=== PATIENT | female | born 1965 | race Caucasian/White ===

== ENCOUNTER 2022-11-11 08:56 | Day surgery (SDC) | payer OTHER ==
[2022-11-09 12:39] VITALS: BMI 38.2
[2022-11-11] MEDS ORDERED: Acetaminophen 500 MG TAB ONE (10:03)
[2022-11-11] MEDS ORDERED: Bupivacaine/Epinephrine 0.25% 30 ML VIAL ONE (10:36)
[2022-11-11] MEDS ORDERED: fentaNYL 50 mcg/mL 1 mL Vial ONE ×2 (11:02→12:55)
[2022-11-11] MEDS ORDERED: fentaNYL PF 100 MCG/2 ML SYRINGE ONE (11:02)
[2022-11-11] MEDS ORDERED: Midazolam HCl 2 mg/2 ml Vial ONE ×2 (11:02→11:07)
[2022-11-11] MEDS ORDERED: CEFAZOLIN 2 GM VIAL ONE (11:10)
[2022-11-11] MEDS ORDERED: Sodium Chloride 0.9% 100 ML ONE (11:10)
[2022-11-11] MEDS ORDERED: Ketorolac Tromethamine 30 MG/ML VIAL ONE (11:12)
[2022-11-11] MEDS ORDERED: Lidocaine 1% PF 5 ML VIAL ONE (11:29)
[2022-11-11] MEDS ORDERED: Rocuronium Bromide 10 MG/ML (10ML VIAL) ONE (11:29)
[2022-11-11] MEDS ORDERED: Ondansetron PF 4 MG/2 ML Vial ONE (11:29)
[2022-11-11] MEDS ORDERED: Glycopyrrolate 0.2 MG/ML 5 ML SYRINGE ONE (11:29)
[2022-11-11] MEDS ORDERED: PROPOFOL 200 MG/20 ML VIAL ONE (11:29)
[2022-11-11] MEDS ORDERED: Dexamethasone 20 MG/5 ML VIAL ONE (11:29)
[2022-11-11] MEDS ORDERED: NEOSTIGMINE 3 MG/3 ML SYR 3 MG/3 ML SYRINGE ONE (11:29)
[2022-11-11] MEDS ORDERED: Promethazine HCl 25 MG/ML VIAL ONE (14:33)
== END 2022-11-11 14:48 | disposition home or self-care (01) ==
LOC: SDC 08:56
PROVIDERS: ATTEND Specialist
PROC: 0FT44ZZ Resection of Gallbladder, Percutaneous Endoscopic Approach (ICD-10-PCS; principal; 2022-11-11)
DX: K80.10 Calculus of gallbladder with chronic cholecystitis without obstruction (principal); I10 Essential (primary) hypertension; E89.0 Postprocedural hypothyroidism; E11.9 Type 2 diabetes mellitus without complications; Z85.850 Personal history of malignant neoplasm of thyroid; Z79.84 Long term (current) use of oral hypoglycemic drugs; Z79.890 Hormone replacement therapy; Z79.899 Other long term (current) drug therapy; Z91.013 Allergy to seafood; Z91.018 Allergy to other foods
CPT/HCPCS: 88304; 93005; 93010; C1889; J1100; J1885; J2250; J2405; J2550; J2704; J3010; J3490